=== PATIENT | male | born 1980 ===

== ENCOUNTER 2019-03-29 09:14 | Outpatient (CLI) | payer BC ==
--- NOTE | 2019-03-29 10:17 | ULT ---
GALLBLADDER ULTRASOUND: HISTORY: Elevated LFTs. FINDINGS: The liver demonstrates increased echogenicity consistent with fatty infiltration. No focal mass or in trahepatic ductal dilatation is seen. No gallstones, gallbladder wall thickening or pericholecystic f luid is identified. The common duct measures 2 mm in diameter. The pancreas is not well visualized. There is a prominent right renal pelvis. No free fluid is seen i n the Plata pouch. IMPRESSION: 1. Fatty liver. 2. No evidence of cholelithiasis. POS: [facility]
== END 2019-03-29 09:15 | disposition home or self-care (01) ==
LOC: SCSULT 09:14
PROVIDERS: ATTEND Family Medicine
DX: R74.8 Abnormal levels of other serum enzymes (principal); K76.0 Fatty (change of) liver, not elsewhere classified
CPT/HCPCS: 76705